=== PATIENT | female | born 1975 | race African-American/Black ===

== ENCOUNTER 2016-07-27 12:03 | Emergency (ER) | payer OTHER, MEDICAID ==
[~2016-07-27] VITALS: Ht 172.7 cm; Wt 89.8 kg
[~2016-07-27 12:03] MED LIST: CEPHALEXIN500 MG PO; CYCLOBENZAPRINE10 MG PO; IBUPROFEN600 MG PO; LEVOTHYROXINE100 MCG PO; NORCO 5-325 TA1 EACH PO; ONDANSETRON ODT4 MG ORAL; PEPCID40 MG PO; SYNTHROID100 MCG PO; VIBRAMYCIN100 MG PO; VICODIN 5-5001 EACH PO; ZOFRAN4 MG ORAL
[2016-07-27 12:06] VITALS: BP 103/70
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
[2016-07-27] MEDS ORDERED: Norco 5mg/325mg tab ORAL ONE (13:15)
[2016-07-27] MEDS ORDERED: IBUPROFEN600 MG ORAL (13:17)
[2016-07-27] MEDS ORDERED: NORCO 5-325 TA1 EAC1 ORAL (13:17)
[2016-07-27 13:37] VITALS: BP 113/78
--- NOTE | 2016-07-28 10:06 | Diagnostic Imaging Report ---
\H\CHEST RADIOGRAPH \N\ Indication: Chest pain Technique: Single AP view of the chest. Findings: Comparison: None. Hair artifact overlies the neck base and right lung apex. Mild dextroscoliosis lower thoracic spine. The bones and extra pulmonary soft tissues, cardiomediastinal silhouette, pulmonary vasculature and parenchyma, and pleural surfaces are otherwise unremarkable. IMPRESSION: Mild scoliosis Otherwise Negative AP chest, with limitation as described. \H\LEFT RIB RADIOGRAPHS \N\ Indications: Left rib cage pain. Technique: 4 views of the left ribs. Findings: Comparison: None. No fracture, lytic destruction, periosteal reaction, or other acute skeletal changes are identified. The overlying chest wall soft tissues, underlying pleura and pulmonary parenchyma are unremarkable. IMPRESSION: Negative left rib series.
== END 2016-07-27 13:40 | disposition home or self-care (01) ==
LOC: EMR 12:57
DX: S20.212A Contusion of left front wall of thorax, initial encounter (principal); Z88.8 Allergy status to other drugs, medicaments and biological substances; Z88.2 Allergy status to sulfonamides; Z85.9 Personal history of malignant neoplasm, unspecified; Z90.710 Acquired absence of both cervix and uterus; W50.0XXA Accidental hit or strike by another person, initial encounter; Y93.9 Activity, unspecified; Y92.9 Unspecified place or not applicable
CPT/HCPCS: 99284

== ENCOUNTER 2017-02-05 14:19 | Emergency (ER) | payer OTHER, MEDICAID ==
[~2017-02-05] VITALS: Ht 172.7 cm; Wt 95.3 kg
[~2017-02-05 14:19] MED LIST changes: +IBUPROFEN600 MG ORAL; +NORCO 5-325 TA1 EAC1 ORAL
[2017-02-05] MEDS ORDERED: IBUPROFEN600 MG ORAL (14:41)
[2017-02-05] MEDS ORDERED: Dexamethasone 4mg/ml vial IM ONE (14:45)
--- NOTE | 2017-02-05 14:48 | Emergency Room Report ---
History of Present Illness General Chief Complaint: Upper Respiratory Illness Source: Patient Present Illness HPI 41-year-old female no significant past medical history presenting with sore throat, runny nose, myalgias for 2 days. Patient states that her son was sick with the same symptoms a few days ago. Patient states sore throat, change of voice, slight cough. Runny nose with clear nasal discharge. No fever or chills. Patient has been able to tolerate liquids, but has less appetite for solid foods. Allergies: Coded Allergies: ERYTHROMYCIN BASE (Verified Allergy, Severe, Anaphylaxis, 12/19/11) SULFA(SULFONAMIDE ANTIBIOTICS) (Verified Allergy, Severe, Anaphylaxis, 01/19) Patient History Past Medical History: see triage record Past Surgical History: none Pertinent Family History: none Last Menstrual Period: n/a Now: No : 8 Para: 4 Reviewed Nursing Documentation: PMH: Agreed, PSxH: Agreed Nursing Documentation-PMH Past Medical History: No History, Except For Hx Cancer: Yes - hysterectomy september 2014 Hx Dizziness: Yes Hx Syncope: Yes Hx Weakness: Yes Hx Fatigue: Yes Review of Systems All Other Systems: negative except mentioned in HPI Physical Exam Vital Signs Date Time Temp Pulse Resp B/P (MAP) Pulse Ox O2 Delivery O2 Flow Rate FiO2 02/05/17 14:26 98.2 81 18 115/71 98 Room Air Sp02 EP Interpretation: reviewed, normal General Appearance: normal inspection, well appearing, no apparent distress, alert, GCS 15, non-toxic Head: normocephalic, atraumatic Eyes: bilateral eye normal inspection, bilateral eye PERRL, bilateral eye EOMI ENT: other - Tonsillar erythema, tonsillar enlargement, uvula is midline no exudates, no signs of LICENSE CLERK Neck: normal inspection, full range of motion, supple Respiratory: normal inspection, lungs clear, normal breath sounds, no respiratory distress, no retraction, no wheezing, speaking full sentences, chest symmetrical Cardiovascular #1: normal inspection, regular rate, rhythm, normal capillary refill Cardiovascular #2: 2+ radial (R), 2+ radial (L) Gastrointestinal: normal inspection, non tender, soft, non-distended, no guarding Musculoskeletal: normal inspection, back normal, normal range of motion, non- tender Neurologic: normal inspection, alert, oriented x3, responsive, motor strength/ tone normal, sensory intact, normal gait, speech normal Psychiatric: normal inspection, judgement/insight normal, memory normal Skin: normal inspection, normal color, no rash, warm/dry, well hydrated, normal turgor Medical Decision Making Diagnostic Impression: Primary Impression: Viral pharyngitis ER Course 41-year-old female with sore throat DDX: Viral vs. infectious mononucleosis vs. bacterial pharyngitis vs. allergies Other serious causes such as LICENSE CLERK / RPA / deep space neck infection unlikely in this patient, given her benign physical exam. No pain with extension or flexion of neck. history/physical most consistent With viral pharyngitis Plan: decadron, supportive care. Abx not indicated at this time ER course: Patient remains stable in ED. Decadron given to patient. Disposition: Patient will be discharged to home. Prescription of Motrin given. Patient will follow up with primary care doctor within 5 days. Strict return precautions discussed with patient such as worsening throat pain/swelling, dysphagia, high fever or chills, shortness of breath, abdominal pain, which may indicate severe illness. Patient verbalized understanding and agreed with plan. Please note that this Emergency Department Report was dictated using [employer] supervisor technology software, occasionally this can lead to erroneous entry secondary to interpretation by the dictation equipment. Last Vital Signs Date Time Temp Pulse Resp B/P (MAP) Pulse Ox O2 Delivery O2 Flow Rate FiO2 02/05/17 14:26 98.2 81 18 115/71 98 Room Air Disposition: HOME, SELF-CARE Condition: Improved Scripts Ibuprofen* (MOTRIN*) 600 Mg Tablet 600 MG ORAL Q8H Y for For Pain, #30 TAB 0 Refills Prov: Ayad Thayer M.D. 02/05/17 Patient Instructions: Upper Respiratory Infection, Adult, Pharyngitis Ayad Thayer M.D. Feb 05, 2017 14:48
[2017-02-05] MEDS ORDERED: TESSALON PERLE100 MG ORAL (15:05)
[2017-02-05 15:07] VITALS: BP 122/88
== END 2017-02-05 15:05 | disposition home or self-care (01) ==
LOC: EMR 14:56
DX: J02.8 Acute pharyngitis due to other specified organisms (principal); B97.89 Other viral agents as the cause of diseases classified elsewhere; Z88.2 Allergy status to sulfonamides; Z88.1 Allergy status to other antibiotic agents
CPT/HCPCS: 96372; 99284; J1100

== ENCOUNTER 2017-03-09 02:17 | Emergency (ER) | payer MEDICARE, MEDICAID ==
[~2017-03-09] VITALS: Ht 172.7 cm; Wt 99.8 kg
[~2017-03-09 02:17] MED LIST changes: +TESSALON PERLE100 MG ORAL
[2017-03-09 02:30] VITALS: BP 112/70
--- NOTE | 2017-03-09 02:56 | Emergency Room Report ---
History of Present Illness General Chief Complaint: Toothache Source: Patient Present Illness HPI Is a 41-year-old female who said she has pain to his been ongoing for a month. She saw a dentist ready. She scheduled she did the dentist again for more definitive treatment. She presents with chief complaint of increasing pain to the left upper molar. Pain radiates to her face. No nausea no vomiting. Pain is 10 out of 10 it. Out of her medication. Denies any other complaint Allergies: Coded Allergies: ERYTHROMYCIN BASE (Verified Allergy, Severe, Anaphylaxis, 12/19/11) SULFA(SULFONAMIDE ANTIBIOTICS) (Verified Allergy, Severe, Anaphylaxis, 01/19) Patient History Past Medical History: see triage record, old chart reviewed Past Surgical History: none Pertinent Family History: none Social History: Denies: smoking Last Menstrual Period: 2014 Now: No Immunizations: other Reviewed Nursing Documentation: PMH: Agreed, PSxH: Agreed Nursing Documentation-PMH Hx Cancer: Yes - hysterectomy september 2014 Hx Dizziness: Yes Hx Syncope: Yes Hx Weakness: Yes Hx Fatigue: Yes Review of Systems Eye: Denies: eye pain, blurred vision ENT: Denies: ear pain, nose congestion, throat swelling Respiratory: Denies: cough, shortness of breath Cardiovascular: Denies: chest pain, palpitations Gastrointestinal: Denies: abdominal pain, diarrhea, nausea, vomiting Musculoskeletal: Denies: back pain, joint pain Skin: Denies: rash Neurological: Denies: headache, numbness Endocrine: Denies: increased thirst, increased urine Hematologic/Lymphatic: Denies: easy bruising All Other Systems: negative except mentioned in HPI Physical Exam Vital Signs Date Time Temp Pulse Resp B/P (MAP) Pulse Ox O2 Delivery O2 Flow Rate FiO2 03/09/17 02:25 97.7 78 16 112/70 97 Room Air vitals normal Sp02 EP Interpretation: reviewed, normal General Appearance: well appearing, no apparent distress, alert Head: normocephalic, atraumatic Eyes: bilateral eye PERRL, bilateral eye EOMI ENT: hearing grossly normal, normal pharynx, other - Patient points toward the last molar in the left jaw area pain. No abscess seen. No redness. Neck: full range of motion, supple, no meningismus Respiratory: chest non-tender, lungs clear, normal breath sounds Cardiovascular #1: regular rate, rhythm, no murmur Gastrointestinal: normal bowel sounds, non tender, no mass, no organomegaly, no bruit, non-distended Musculoskeletal: back normal, gait/station normal, normal range of motion Psychiatric: mood/affect normal Skin: warm/dry Medical Decision Making Diagnostic Impression: Primary Impression: Toothache Additional Impression: Opiate dependence Qualified Codes: F11.20 - Opioid dependence, uncomplicated ER Course Patient with dental pain. She has had a prescription for [place] cornea him feel on 1222 by her dentist. She also get frequent cough medicine with codeine by her doctor. She's also getting oxycodone 20 mg, #60 monthly by her doctor. I suspect she has opioid dependency. I see no obvious infectious or abscess. We' ll discharge her with antibiotics. Last Vital Signs Date Time Temp Pulse Resp B/P (MAP) Pulse Ox O2 Delivery O2 Flow Rate FiO2 03/09/17 02:30 97.7 16 112/70 97 Room Air 03/09/17 02:25 78 Status: improved Disposition: HOME, SELF-CARE Condition: Stable Scripts Ibuprofen* (MOTRIN*) 600 Mg Tablet 600 MG ORAL THREE TIMES A DAY, #30 TAB 0 Refills Prov: ERNESTINE ORTEGA M.D. 03/09/17 Clindamycin Hcl (CLINDAMYCIN HCL) 300 Mg Capsule 300 MG ORAL THREE TIMES A DAY, #21 CAP Prov: ERNESTINE ORTEGA M.D. 03/09/17 Patient Instructions: Dental Pain Additional Instructions: Followup your dentist in 7 days return if symptom worsen. ERNESTINE ORTEGA M.D. Mar 09, 2017 02:56
[2017-03-09] MEDS ORDERED: CLINDAMYCIN HC300 MG ORAL (03:00)
[2017-03-09] MEDS ORDERED: Norco 5mg/325mg tab ORAL ONE (03:00)
[2017-03-09] MEDS ORDERED: IBUPROFEN600 MG ORAL (03:00)
[2017-03-09 03:10] VITALS: BP 112/70
== END 2017-03-09 03:10 | disposition home or self-care (01) ==
LOC: EMR 02:52
DX: K08.89 Other specified disorders of teeth and supporting structures (principal); F11.20 Opioid dependence, uncomplicated; Z88.2 Allergy status to sulfonamides
CPT/HCPCS: 99284

== ENCOUNTER 2017-05-12 10:18 | Emergency (ER) | payer OTHER, MEDICAID ==
[~2017-05-12] VITALS: Ht 172.7 cm; Wt 98.9 kg
[~2017-05-12 10:18] MED LIST changes: +CLINDAMYCIN HC300 MG ORAL
[2017-05-12] MEDS ORDERED: ROXICODONE15 MG ORAL (10:36)
[2017-05-12] MEDS ORDERED: SYNTHROID75 MCG ORAL (10:36)
[2017-05-12] MEDS ORDERED: Ketorolac 60mg Inj IM ONE (11:15)
[2017-05-12 12:30] VITALS: BP 121/66
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
--- NOTE | 2017-05-17 22:07 | Emergency Room Report ---
History of Present Illness General Chief Complaint: Pain Source: Patient Present Illness HPI Patient is a 41-year-old female who presented after increased sharp pain after recently being injured by her dog. Patient stated that she had fallen onto a fixed object. She reported having increased pain to the side of her chest worse with deep breath and movement. She denied loss of consciousness. The pain persistent for several days.Patient denied loss of consciousness. Allergies: Coded Allergies: ERYTHROMYCIN BASE (Verified Allergy, Severe, Anaphylaxis, 12/19/11) SULFA(SULFONAMIDE ANTIBIOTICS) (Verified Allergy, Severe, Anaphylaxis, 01/19) Patient History Past Medical History: see triage record Now: No Reviewed Nursing Documentation: PMH: Agreed, PSxH: Agreed Nursing Documentation-PMH Past Medical History: No History, Except For Hx Cardiac Problems: Yes - Hyperthyroidism, hystrectomy Hx Cancer: Yes - hysterectomy september 2014 Hx Dizziness: Yes Hx Syncope: Yes Hx Weakness: Yes Hx Fatigue: Yes Review of Systems All Other Systems: negative except mentioned in HPI Physical Exam Vital Signs Date Time Temp Pulse Resp B/P (MAP) Pulse Ox O2 Delivery O2 Flow Rate FiO2 05/12/17 10:29 98.5 75 18 116/76 99 Room Air 98.4 Sp02 EP Interpretation: reviewed, normal General Appearance: normal inspection, well appearing, no apparent distress, alert, GCS 15 Head: atraumatic ENT: normal ENT inspection, hearing grossly normal, normal voice Neck: normal inspection, full range of motion, supple, no bony tend Respiratory: normal inspection, lungs clear, normal breath sounds, no respiratory distress, no retraction, no wheezing Cardiovascular #1: regular rate, rhythm, no edema Gastrointestinal: normal inspection, normal bowel sounds, non tender, soft, no guarding, no hernia Genitourinary: no CVA tenderness Musculoskeletal: normal inspection, back normal, normal range of motion Neurologic: normal inspection, alert, oriented x3, responsive, seamer operator III-XII nml as tested, motor strength/tone normal, speech normal Psychiatric: normal inspection, judgement/insight normal, mood/affect normal Skin: normal inspection, normal color, no rash Medical Decision Making Diagnostic Impression: Primary Impression: Rib fracture ER Course Patient presented after my patient presented for chest pain.Differential diagnosis included but was not limited to acute coronary syndrome, rib fracture , pulmonary embolism, pneumonia, aortic dissection, shingles, pneumothorax, aortic dissection, esophageal rupture, pericarditis. X-ray imaging of the chest was ordered due to recent fall. X-ray the chest 4 views interpreted by me showed possible fractured 11th rib. Patient was noted to have prior history of pain management was noted to have adequate pain medications at home. The patient is advised to follow up with primary care doctor in 1-2 days. Patient is advised to return if any worsening condition or if any changes in status that are concerning. This report is dictated with [employer] soil conservation teacher software which may occasionally lead to discrepancies related to use of this software. Last Vital Signs Date Time Temp Pulse Resp B/P (MAP) Pulse Ox O2 Delivery O2 Flow Rate FiO2 05/12/17 12:30 98.7 80 20 121/66 99 Room Air 98.7 Status: improved Disposition: HOME, SELF-CARE Condition: Stable Patient Instructions: Rib Fracture Valerio Chavarria May 17, 2017 22:07
== END 2017-05-12 12:30 | disposition home or self-care (01) ==
LOC: EMR 11:25
DX: S22.39XA Fracture of one rib, unspecified side, initial encounter for closed fracture (principal); W54.1XXA Struck by dog, initial encounter; Y92.89 Other specified places as the place of occurrence of the external cause; Z88.2 Allergy status to sulfonamides
CPT/HCPCS: 96372; 99283

== ENCOUNTER 2017-06-02 14:52 | Emergency (ER) | payer OTHER, MEDICAID ==
[~2017-06-02] VITALS: Ht 172.7 cm; Wt 90.7 kg
[~2017-06-02 14:52] MED LIST changes: +ROXICODONE15 MG ORAL; +SYNTHROID75 MCG ORAL
[2017-06-02 15:05] VITALS: BP 103/70
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
[2017-06-02] MEDS ORDERED: Promethazine Plain 6.25mg/5ml ORAL ONE (15:45)
--- NOTE | 2017-06-02 16:17 | Diagnostic Imaging Report ---
Indication: Chest pain Technique: One view of the chest Comparison: 02/27/2012 Findings: Lungs and pleural spaces are clear. Heart size is normal Impression: No acute process
[2017-06-02 16:22] LABS: APPEARANCE,URINE CLEAR; BILIRUBIN, URINE NEGATIVE (NEGATIVE); GLUCOSE, URINE (UA) NEGATIVE (NEGATIVE); KETONES,URINE 1+ (NEGATIVE); LEUKOCYTE ESTERASE ,URINE 2+ (NEGATIVE); NITRITE,URINE POSITIVE (NEGATIVE); PH,URINE 5 (4.5-8.0); PROTEIN,URINE 2+ (NEGATIVE); UROBILINOGEN,URINE 1 MG/DL (0.0-1.0)
[2017-06-02 16:23] LABS: COLOR,URINE YELLOW
[2017-06-02] MEDS ORDERED: TYLENOL EXTRA500 MG ORAL (16:29)
[2017-06-02] MEDS ORDERED: CEPHALEXIN500 MG ORAL (16:29)
[2017-06-02] MEDS ORDERED: PROMETHAZI6.25 MG/1 ORAL (16:50)
[2017-06-02 16:52] VITALS: BP 103/70
== END 2017-06-02 17:05 | disposition home or self-care (01) ==
LOC: EMR 15:30
DX: R05 Cough (principal); N39.0 Urinary tract infection, site not specified; Z90.710 Acquired absence of both cervix and uterus; Z88.1 Allergy status to other antibiotic agents; Z88.2 Allergy status to sulfonamides; R07.9 Chest pain, unspecified
CPT/HCPCS: 71045; 81003; 87086; 99284

== ENCOUNTER 2018-02-18 15:12 | Emergency (ER) | payer OTHER, MEDICAID ==
[~2018-02-18] VITALS: Ht 172.7 cm; Wt 95.3 kg
[~2018-02-18 15:12] MED LIST changes: +CEPHALEXIN500 MG ORAL; +PROMETHAZI6.25 MG/1 ORAL; +TYLENOL EXTRA500 MG ORAL
[2018-02-18 15:20] VITALS: BP 108/81
[2018-02-18] MEDS ORDERED: Methocarbamol 750mg tab ORAL ONE (15:45)
[2018-02-18] MEDS ORDERED: Ketorolac 30mg Inj IM ONE (15:45)
[2018-02-18] MEDS ORDERED: ROBAXIN-750750 MG PO (16:15)
[2018-02-18] MEDS ORDERED: IBUPROFEN600 MG ORAL (16:15)
[2018-02-18] MEDS ORDERED: LIDODERM700 M1 TOPIC (16:15)
[2018-02-18 16:32] VITALS: BP 110/83
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
== END 2018-02-18 16:35 | disposition home or self-care (01) ==
LOC: EMR 15:53
DX: S29.011A Strain of muscle and tendon of front wall of thorax, initial encounter (principal); V43.62XA Car passenger injured in collision with other type car in traffic accident, initial encounter; Y92.410 Unspecified street and highway as the place of occurrence of the external cause; Z88.2 Allergy status to sulfonamides; Z88.1 Allergy status to other antibiotic agents
CPT/HCPCS: 71045; 93005; 96372; 99283; J1885

== ENCOUNTER 2018-05-10 01:04 | Emergency (ER) | payer OTHER, MEDICAID ==
[~2018-05-10] VITALS: Ht 172.7 cm; Wt 98.4 kg
[~2018-05-10 01:04] MED LIST changes: +LIDODERM700 M1 TOPIC; +ROBAXIN-750750 MG PO
[2018-05-10 01:30] VITALS: BP 101/69
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
[2018-05-10] MEDS ORDERED: Methocarbamol 750mg tab ORAL ONE (01:45)
--- NOTE | 2018-05-10 02:10 | NUR ---
ED Nurse Note: pt off to CT.
--- NOTE | 2018-05-10 03:00 | Diagnostic Imaging Report ---
EXAM: CT Cervical Spine Without Intravenous Contrast CLINICAL HISTORY: PAIN TECHNIQUE: Axial computed tomography images of the cervical spine without intravenous contrast. CTDI is 17.65 mGy and DLP is 482 mGy-cm. One or more of the following dose reduction techniques were used: automated exposure control, adjustment of the mA and/or kV according to patient size, use of iterative reconstruction technique. Coronal and sagittal reformatted images were created and reviewed. COMPARISON: C Spine radiographs dated 04/05/10. FINDINGS: Vertebrae: Cervical straightening which may be secondary to positioning versus spasm. No acute fracture. Discs/spinal canal/neural foramina: Central calcified disc osteophyte complexes are seen particularly at C4/C5 and at C6/C7 causing a degree of central stenosis with indentation of the spinal cord. Bilateral neuroforaminal stenosis seen at C4/C5, C5/C6, C6/C7 and C7/T1. Soft tissues: Unremarkable. Thyroid: Evidence of previous right thyroid lobectomy. Possible left thyroid 2 cm nodule. IMPRESSION: 1. Cervical straightening which may be secondary to positioning versus spasm. 2. Central calcified disc osteophyte complexes are seen particularly at C4/C5 and at C6/C7 causing a degree of central stenosis with indentation of the spinal cord. Bilateral neuroforaminal stenosis seen at C4/C5, C5/C6, C6/C7 and C7/T1. 3. Evidence of previous right thyroid lobectomy. Possible left thyroid 2 cm nodule. Recommend further evaluation with ultrasound.
[2018-05-10] MEDS ORDERED: IBUPROFEN600 MG ORAL (03:12)
[2018-05-10] MEDS ORDERED: ROBAXIN-750750 MG PO (03:12)
[2018-05-10] MEDS ORDERED: LIDODERM700 M1 TOPIC (03:12)
--- NOTE | 2018-05-10 03:25 | NUR ---
ED Nurse Note: pt cleared to be d/c per ERMD, pt discharge/aftercare instruction w/ prescription provided, pt advised to follow up with pcp or return to ED if sx worsen or new sx develop, pt education done via discussion and handout, pt verbalized understanding and agrees with plan, pt vss, ambulatory w/ steady gait, resp even and unlabored on RA, all belongings left w/ pt. wristband removed. pt states she will uber home.
[2018-05-10 03:28] VITALS: BP 118/67
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
== END 2018-05-10 03:15 | disposition home or self-care (01) ==
LOC: EMR 01:49
DX: S16.1XXA Strain of muscle, fascia and tendon at neck level, initial encounter (principal); V43.52XA Car driver injured in collision with other type car in traffic accident, initial encounter; Y92.414 Local residential or business street as the place of occurrence of the external cause; Z88.2 Allergy status to sulfonamides; Z88.1 Allergy status to other antibiotic agents
CPT/HCPCS: 72125; 99284

== ENCOUNTER 2018-09-23 19:21 | Emergency (ER) | payer OTHER, MEDICAID ==
[~2018-09-23] VITALS: Ht 172.7 cm; Wt 97.5 kg
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
[2018-09-23] MEDS ORDERED: Acetaminophen 500mg (ES) tab ORAL ONE (19:45)
[2018-09-23] MEDS ORDERED: ROBAXIN-750750 MG PO (19:47)
[2018-09-23] MEDS ORDERED: NAPROXEN250 MG ORAL (19:47)
--- NOTE | 2018-09-23 19:47 | Emergency Room Report ---
History of Present Illness General Chief Complaint: Pain Source: Patient Present Illness HPI 42-year-old female history of hypertension presents with left arm tingling, and pain x6 days, no aggravating or alleviating factors, patient states she feels a little numb in her fingertips, she has a history of cervical degeneration from a recent MRI per patient, she denies any focal weakness, she denies any facial droop, no chest pain or shortness of breath, she states the back of her left arm has some pain achy in nature. Presents for evaluation Allergies: Coded Allergies: ERYTHROMYCIN BASE (Verified Allergy, Severe, Anaphylaxis, 12/19/11) SULFA(SULFONAMIDE ANTIBIOTICS) (Verified Allergy, Severe, Anaphylaxis, 01/19) Patient History Past Medical History: see triage record Last Menstrual Period: 2014 Now: No Reviewed Nursing Documentation: PMH: Agreed; PSxH: Agreed Nursing Documentation-PMH Hx Dizziness: Yes Hx Syncope: Yes Hx Weakness: Yes Hx Fatigue: Yes Review of Systems Constitutional: Denies: chills, fever Eye: Denies: blurred vision, double vision ENT: Denies: throat pain, nasal discharge Respiratory: Denies: cough, shortness of breath Cardiovascular: Denies: chest pain, palpitations Gastrointestinal: Denies: abdominal pain, diarrhea, nausea, vomiting Genitourinary: Denies: dysuria, pain Musculoskeletal: Denies: back pain, muscle pain Skin: Denies: rash, lesions Neurological: Reports: tingling; Denies: headache, focal weakness Hematologic/Lymphatic: Denies: easy bleeding, easy bruising All Other Systems: negative except mentioned in HPI Physical Exam Vital Signs Date Time Temp Pulse Resp B/P (MAP) Pulse Ox O2 Delivery O2 Flow Rate FiO2 09/23/18 19:22 98.4 65 18 122/78 (93) 100 Room Air Sp02 EP Interpretation: reviewed, normal General Appearance: well appearing, no apparent distress, alert Head: normocephalic, atraumatic Eyes: bilateral eye PERRL, bilateral eye EOMI ENT: uvula midline, moist mucus membranes Neck: supple, thyroid normal, supple/symm/no masses Respiratory: lungs clear, no respiratory distress, no retraction, no accessory muscle use Cardiovascular #1: normal peripheral pulses, regular rate, rhythm, no edema, no gallop, no murmur Gastrointestinal: non tender, soft, no guarding, no rebound Musculoskeletal: normal inspection, other - Left upper externally: 2+ radial pulses, 5 out of 5 strength knife finisher, extension flexion of the elbow, sensation grossly intact, no focal weakness Neurologic: alert, oriented x3, normal gait Psychiatric: mood/affect normal Skin: no rash, warm/dry Medical Decision Making Diagnostic Impression: Primary Impression: Arm paresthesia, left Additional Impression: Cervical radiculopathy ER Course 42-year-old female presents with most likely a cervical radiculopathy given her left arm numbness, no focal weakness, sensation is grossly intact diminished subjectively, 5 out of 5 strength, no focal neuro deficits, counseled patient that she does not need an x-ray or CT of her brain or C-spine patient states she is amenable to this plan and will follow-up if she worsens. Patient also has type triceps on examination, which may be contribute into her paresthesias. Last Vital Signs Date Time Temp Pulse Resp B/P (MAP) Pulse Ox O2 Delivery O2 Flow Rate FiO2 09/23/18 19:22 98.4 65 18 122/78 (93) 100 Room Air Disposition: HOME, SELF-CARE Condition: Improved Scripts Naproxen* (NAPROSYN*) 250 Mg Tablet 500 MG ORAL BID PRN for For Pain, #20 TAB 0 Refills Prov: Yobani Calle M.D. 09/23/18 Methocarbamol* (ROBAXIN-750*) 750 Mg Tablet 750 MG PO QID, #28 TAB 0 Refills Prov: Yobani Calle M.D. 09/23/18 Patient Instructions: Cervical Radiculopathy, [id number], Muscle Strain, Easy -to-Read Additional Instructions: The patient was provided with discharge instructions, notified to follow-up with a primary care doctor and or specialist in the next 24-48 hours, and to return to the ED if they have worsening of their symptoms. Please note that this report is being documented using [employer] technology. This can lead to erroneous entry secondary to incorrect interpretation by the dictating instrument. Yobani Calle M.D. Sep 23, 2018 19:47
[2018-09-23 20:10] VITALS: BP 122/78
--- NOTE | 2018-09-23 20:15 | NUR ---
Pt being d/c to home, given meds for pain, not effective yet but pt has prescription and f/u info, pt is ambulatory, with family, nad noted during d/c, pt armband removed.
[2018-09-23 20:21] VITALS: BP 122/78
== END 2018-09-23 20:15 | disposition home or self-care (01) ==
LOC: EMR 20:12
DX: R20.2 Paresthesia of skin (principal); M54.12 Radiculopathy, cervical region; Z88.2 Allergy status to sulfonamides; Z88.8 Allergy status to other drugs, medicaments and biological substances; I10 Essential (primary) hypertension
CPT/HCPCS: 99282